=== PATIENT | male | born 1990 | race Caucasian/White ===

== ENCOUNTER 2020-07-26 11:07 | Emergency (ER) | payer OTHER ==
[~2020-07-26] VITALS: Ht 175.3 cm; Wt 96.7 kg
[2020-07-26 11:07] VITALS: BP 134/86
--- NOTE | 2020-07-26 11:47 | EKG ---
[address] [address] Test Date: 2020-07-26 Test Time: 11:23:47 Pat Name: FAHAD BEJARANO Department: Room: Gender: M Turning Lathe Tender: : 1990 Requested By: JENNIFER TRAYLOR Order Number: [id number] Reading MD: Measurements Intervals [place] Rate: 70 P: 51 MI: 162 QRS: 59 QRSD: 94 T: 22 QT: 354 QTc: 385 Interpretive Statements SINUS RHYTHM LEFT ATRIAL ABNORMALITY ABNORMAL ECG RI6.02 No previous ECG available for comparison
--- NOTE | 2020-07-26 12:40 | RAD ---
EXAMINATION: CHEST AP ONLY CLINICAL HISTORY: Chest pain EXAM DATE/TIME: 07/26/2020 11:37 AM COMPARISON: None FINDINGS: Lines, Tubes, and Devices: None. Cardiomediastinal Silhouette: Within normal limits. Lungs and Pleura: No evidence of focal airspace consolidation or pleural effusion. Pulmonary vasculature unremarkable. Bones and Soft Tissues: No acute osseous abnormality. IMPRESSION: No evidence of acute cardiopulmonary abnormality. Electronically signed by: Zbigniew Blankenship DO (07/26/2020 12:37 PM) [id number]
[2020-07-26 13:31] LABS: BASO % 0 % (0-3); EOS # 0.1 x10^3/uL (0.0-0.7); EOS % 1 % (0-3); HEMATOCRIT 48.4 % (39.0-53.0); LYMPH # 1.9 x10^3/uL (1.0-4.8); LYMPH % 20 % (24-48); MEAN CORPUSCULAR HEMOGLOBIN 29 pg (25-35); MEAN CORPUSCULAR HGB CONC 33 g/dL (31-37); MEAN CORPUSCULAR VOLUME 88 fL (79-100); MONO # 0.7 x10^3/uL (0.0-1.1); MONO % 7 % (0-9); NEUT # 6.9 x10^3uL (1.8-7.7); NEUT % 72 % (31-73); PLATELET COUNT 205 x10^3/uL (140-400); RED BLOOD COUNT 5.53 x10^6/uL (4.30-5.70); RED CELL DISTRIBUTION WIDTH 13.5 % (11.5-14.5); WHITE BLOOD COUNT 9.6 x10^3/uL (4.0-11.0)
[2020-07-26 13:32] LABS: CREATININE 1.2 mg/dL (0.7-1.3); GFR 71.6
[2020-07-26 13:44] LABS: ALBUMIN 3.8 g/dL (3.4-5.0); TOTAL BILIRUBIN 0.4 mg/dL (0.2-1.0); TOTAL PROTEIN 7.6 g/dL (6.4-8.2)
[2020-07-26] MEDS ORDERED: NAPR-682 PO (13:52)
--- NOTE | 2020-07-26 13:53 | PHYS DOC ---
Past History Past Medical History: No Pertinent History Past Surgical History: No Surgical History Alcohol Use: None Adult General Chief Complaint Chief Complaint: CHEST PAIN HPI HPI Patient is 30-year-old male who presents the emergency room with left-sided chest pain that radiates around his back. He states that it is achy in nature and only happens when he takes a deep breath. He denies any URI symptoms, cough, fever. He has been playing active video games and thinks it is possible he could have pulled something. Review of Systems Review of Systems General: Denies fever, chills, sweats, fatigue Eyes: Denies drainage, blurred vision, eye redness HENT: Denies rhinorrhea, sore throat, earache Respiratory: Denies cough, shortness of breath, wheezing Cardiac: Denies edema, palpitations. Reports chest pain GI: Denies abdominal pain, Nausea, vomiting MSK: Denies back pain, neck pain Skin: Denies rash, jaundice Neuro: Denies headache, dizziness Psychiatric: Denies SI/HI Allergies Allergies Allergies Coded Allergies Type Severity Reaction Last Updated Verified No Known Drug Allergies 07/26/20 No Physical Exam Physical Exam General: Awake, alert, NAD. Well Nourished, well hydrated. Cooperative HEENT: Atraumatic, EOMI, PERRL, airway patent, moist oral mucosa Neck: Supple, trachea midline Respiratory: CTA bilaterally, normal effort, no wheezing/crackles CV: RRR, no murmur, cap refill <2 GI: Soft, nondistended, nontender, no masses MSK: No obvious deformities Skin: Warm, dry, intact Neuro: A&O x3, speech NL, sensory and motor grossly intact, no focal deficits Psych: Normal affect, normal mood, not suicidal or homicidal Current Patient Data Vital Signs Vital Signs Date Time Temp Pulse Resp B/P (MAP) Pulse Ox O2 Delivery O2 Flow Rate FiO2 07/26/20 11:07 98.2 74 15 134/86 (102) 97 Room Air Lab Results Laboratory Tests Test 07/26/20 11:17 White Blood Count 9.6 x10^3/uL (4.0-11.0) Red Blood Count 5.53 x10^6/uL (4.30-5.70) Hemoglobin 16.0 g/dL (13.0-17.5) Hematocrit 48.4 % (39.0-53.0) Mean Corpuscular Volume 88 fL (79-100) Mean Corpuscular Hemoglobin 29 pg (25-35) Mean Corpuscular Hemoglobin Concent 33 g/dL (31-37) Red Cell Distribution Width 13.5 % (11.5-14.5) Platelet Count 205 x10^3/uL (140-400) Neutrophils (%) (Auto) 72 % (31-73) Lymphocytes (%) (Auto) 20 % (24-48) L Monocytes (%) (Auto) 7 % (0-9) Eosinophils (%) (Auto) 1 % (0-3) Basophils (%) (Auto) 0 % (0-3) Neutrophils # (Auto) 6.9 x10^3uL (1.8-7.7) Lymphocytes # (Auto) 1.9 x10^3/uL (1.0-4.8) Monocytes # (Auto) 0.7 x10^3/uL (0.0-1.1) Eosinophils # (Auto) 0.1 x10^3/uL (0.0-0.7) Basophils # (Auto) 0.0 x10^3/uL (0.0-0.2) D-Dimer (Tracy) 0.20 mg/L (0.00-0.50) Sodium Level 139 mmol/L (136-145) Potassium Level 4.0 mmol/L (3.5-5.1) Chloride Level 102 mmol/L (98-107) Carbon Dioxide Level 28 mmol/L (21-32) Anion Gap 9 (6-14) Blood Urea Nitrogen 13 mg/dL (8-26) Creatinine 1.2 mg/dL (0.7-1.3) Estimated GFR (Cockcroft-Gault) 71.6 BUN/Creatinine Ratio 11 (6-20) Glucose Level 103 mg/dL (70-99) H Calcium Level 9.0 mg/dL (8.5-10.1) Total Bilirubin 0.4 mg/dL (0.2-1.0) Aspartate Amino Transferase (AST) 22 U/L (15-37) Alanine Aminotransferase (ALT) 39 U/L (16-63) Alkaline Phosphatase 96 U/L (46-116) Creatine Kinase 144 U/L (39-308) Troponin I Quantitative < 0.017 ng/mL (0-0.055) MY-Wyu-X-Type Natriuretic Peptide 6 pg/mL (0-124) Total Protein 7.6 g/dL (6.4-8.2) Albumin 3.8 g/dL (3.4-5.0) Albumin/Globulin Ratio 1.0 (1.0-1.7) EKG EKG [] Radiology/Procedures Radiology/Procedures [] Course & Med Decision Making Course & Med Decision Making Pertinent Labs and Imaging studies reviewed. (See chart for details) Patient is 30-year-old male who presents to the emergency room with pleuritic chest pain when taking a deep breath. This is likely secondary to costochondritis. This is atypical chest pain and does not appear to be related to cardiac causes. Work-up was ordered and was normal. D-dimer is negative. Patient will be placed on NSAIDs. Patient's test results and vitals while in the ED were fully reviewed and discussed with the patient. Patient is stable and at this time does not need admission to the hospital. We have discussed strict return precautions and the importance of following up with their Primary Care Physician. Patient stated understanding and was given an opportunity to ask any questions. Patient is in agreement with plan. Dragon Disclaimer Dragon Disclaimer This electronic medical record was generated, in whole or in part, using a voice recognition dictation system. Departure Departure: Impression: Primary Impression: Chest pain Disposition: 01 HOME/RESIDENCE PRIOR TO ADM Condition: STABLE Referrals: PCP,NO (PCP) Patient Instructions: Costochondritis Scripts Naproxen Sodium (ANAPROX DS) 550 Mg Tablet 1 TAB PO BID for inflammation for 15 Days, #30 TAB 0 Refills Prov: JENNIFER TRAYLOR MD 07/26/20 JENNIFER TRAYLOR MD Jul 26, 2020 13:53
[2020-07-26] MEDS ORDERED: DEXAMETHASONE SOD PHOS 10 MG/ML VIAL. IV ONE (14:00)
[2020-07-26] MEDS ORDERED: KETOROLAC 30 MG/ML VIAL. IVP ONE (14:00)
== END 2020-07-26 14:03 | disposition home or self-care (01) ==
LOC: ER 11:07
DX: R07.89 Other chest pain (principal)
CPT/HCPCS: 36415; 71045; 80053; 82550; 83880; 84484; 85025; 85379; 93005; 96374; 96375; 99285; J1100; J1885